=== PATIENT | female | born 1985 | race Caucasian/White ===

== ENCOUNTER 2017-02-10 22:34 | Inpatient (IN) | payer OTHER ==
[~2017-02-10] VITALS: Ht 165.1 cm; Wt 58.3 kg
--- NOTE | ~2017-02-10 | HC ---
[facility] [place] [address] CONSULTATION Name: JOSÉ MIGUEL ERICKSON Room #: [facility]-P ADM IN M.R.#: [id number] Admission: 02/11/17 Attend Phys: Heriberto Escobar MD Discharge: Date of : 85 Report #: [id number] THIS REPORT FOR: //name// CC: Jose Escobar DATE OF SERVICE: 02/11/2017 ENDOCRINE CONSULTATION DATE OF SERVICE: 02/11/2017 PATIENT OF: ____ PATIENT LOCATION: [facility] ICU SUBJECTIVE: One of multiple admissions for this 31-year-old white female with repeated episodes of ketoacidosis. The patient apparently has type 1 diabetes diagnosed at age 3 and has been somewhat noncompliant with frequent episodes of poor control and ketoacidosis. The patient is somewhat combative and gives limited history. She is quite lethargic. She apparently was admitted in ketoacidosis to an outside hospital and transferred here over the past day. She is currently receiving IV insulin and intravenous fluids plus potassium supplementation and lab is slowly normalizing. The patient states that she has been taking lispro insulin by sliding scale t.i.d., although she generally eats 4 meals and snacks frequently. She states she takes detemir 30 units b.i.d. She is unable to state who her physician is or why she is on such elevated insulin doses. She has no specifics about her dietary regimen, but states that she was checking her blood sugar over the past several days and they were in the high 100s to low 200s. Otherwise, the patient is unable to give any pertinent past or current medical history. CURRENT MEDICATIONS: At the time of consultation include IV insulin and fluids as mentioned above, fluoxetine, loratadine, famotidine, ondansetron, potassium and possibly other medication. Otherwise, there is no pertinent past or family history available at this time. OBJECTIVE: LABORATORY DATA: Last scheduled labs showed a sodium 141, potassium 4.2, chloride 107, CO2 20, BUN 10, creatinine 1.1, glucose 164, bilirubin 0.4, ____ 53, calcium 8.4, phosphorus 2.5, magnesium 1.8, alkaline phosphatase 163, SGPT 75, total protein 6.7, albumin 2.3. Acetone is pending. Prior glucoses were approximately 700 when admitted to [facility], most recent pH 7.38, but apparently was initially 7.1 at admission to prior [address] [address] CONSULTATION Name: JOSÉ MIGUEL ERICKSON Room #: 243-P ADM IN [facility]#: [id number] Admission: 02/11/17 Attend Phys: Heriberto Escobar MD Discharge: Date of : 85 Report #: [id number] hospital, drug screen is reported to be positive for methamphetamine. PHYSICAL EXAMINATION: GENERAL: Thin 31-year-old white female who is minimally able to answer questions and somewhat antagonistic. Height and weight are reported to be 5 feet 5 inches and 115 pounds. VITAL SIGNS: The patient is afebrile, heart rate 90 and regular, blood pressure 130/70. SKIN: Somewhat dry with decreased turgor. HEENT: PERRL. CHEST: Clear to P and A. HEART: Regular rhythm without murmurs, rubs or gallops. ABDOMEN: Benign, without masses, tenderness, organomegaly. Bowel sounds active. EXTREMITIES: Show no edema, cyanosis or clubbing. Peripheral pulses 2+ and equal bilaterally. NEUROLOGIC: Difficult to evaluate due to lack of patient cooperation. ASSESSMENT: 1. Diabetes mellitus in poor control with multiple recent episodes of ketoacidosis. By history, compliance has been poor, although the patient states she has been taking her insulin appropriately, monitoring her glucose, etc. This does not appear likely as it does not correspond with the laboratory data available. PLAN: 1. Will evaluate prior control with hemoglobin A1c. 2. Will continue IV hydration and attempt to slowly wean the patient back on the oral caloric intake and scheduled q.i.d. insulin dosage prior to hospital dismissal. Meanwhile, will attempt to explain the patient the necessity for improved compliance in all areas and effort to avoid her current apparent self-abusive behavior. Thank you very much for this consultation. I will continue to follow the patient with you and attempt to improve and stabilize glucose control. <ELECTRONICALLY SIGNED> By: Brain Kirby MD 02/12/17 0829 [id number] Brain Kirby MD /nt
--- NOTE | ~2017-02-10 | HC ---
[facility] [place] [address] CONSULTATION Name: JOSÉ MIGUEL ERICKSON Room #: 439-P ADM IN M.R.#: [id number] Admission: 02/11/17 Attend Phys: Heriberto Escobar MD Discharge: Date of : 85 Report #: [id number] THIS REPORT FOR: //name// CC: Jose Escobar DATE OF SERVICE: 02/12/2017 Clinically improved. The patient is now alert and appropriate and p.o. intake is slowly normalizing on her scheduled diet. Laboratory values are normalizing, sodium 140, potassium 3.6, chloride 105, CO2 of 26, BUN 7, creatinine ____. Glucoses are stable in the low 100s and insulin drip is now consistently off except for problem with it being discontinued earlier last night, allowing for unexpected hyperglycemia. The pH is also normalized. Initiating subcutaneous insulin and we will readjust dosage as needed, utilizing lispro t.i.d. prandially with meals and some form of glargine at bedtime. It is not clear whether the patient will continue with improved compliance after stabilization and dismissal. <ELECTRONICALLY SIGNED> By: Brain Kirby MD 02/13/17 1041 [id number] [id number] Brain Kirby MD /nt
--- NOTE | ~2017-02-10 | HC ---
[facility] [place] [address] CONSULTATION Name: JOSÉ MIGUEL ERICKSON Room #: 439-P [facility] IN M.R.#: [id number] Admission: 02/11/17 Attend Phys: Heriberto Escobar MD Discharge: 02/13/17 Date of : 85 Report #: [id number] THIS REPORT FOR: //name// CC: Jose Escobar DATE OF SERVICE: 02/13/2017 ENDOCRINE PROGRESS NOTE The patient continues to improve. Now on lower rate of IV hydration, insulin drip and frequent monitoring discontinued. The patient is now on q.i.d. subcutaneous insulin in an attempt to approximate appropriate dosage. The patient is doing well with t.i.d. lispro and bedtime glargine 300. We will schedule for discharge once glucoses is at least moderately stable, although I have concern regarding the patient's future compliance post-dismissal. I have discussed the need for appropriate diabetes management and avoidance of recreational drugs to a significant extent, but do not know whether this will be effective at correcting prior behaviors. <ELECTRONICALLY SIGNED> By: Brain Kirby MD 02/14/17 1054 [id number] 1112 Brain Kirby MD /nt
[2017-02-11 00:45] LABS: HEMATOCRIT 36.4 % (37.0-47.0); HEMOGLOBIN 12.1 gm/dL (12.0-15.0); MCH 33.2 pg (26.0-34.0); MCHC 33.1 g/dL (28.0-37.0); MCV 100.2 fL (80.0-100.0); RBC 3.63 mil/uL (4.20-5.00); RDW 14.8 % (10.5-14.5); WBC 11.4 thou/uL (4.0-11.0)
[2017-02-11 01:01] LABS: ALBUMIN 2.3 g/dL (3.4-5.0); ALKALINE PHOSPHATASE 163 U/L (46-116); ANION GAP 22 mmol/L (7-16); BUN 14 mg/dL (7-18); CALCIUM 8.1 mg/dL (8.5-10.1); CHLORIDE 108 mmol/L (98-107); CO2 12 mmol/L (21-32); CREATININE 1.2 mg/dL (0.6-1.0); GLUCOSE 180 mg/dL (74-106); MAGNESIUM 1.8 mg/dL (1.8-2.4); PHOSPHORUS 1.2 mg/dL (2.5-4.9); POTASSIUM 3.3 mmol/L (3.5-5.1); SGOT 53 U/L (15-37); SGPT 75 U/L (30-65); SODIUM 142 mmol/L (136-145); TOTAL BILIRUBIN 0.4 mg/dL (<0.1-1.0); TOTAL PROTEIN 6.7 g/dL (6.4-8.2); TROPONIN-I < 0.04 ng/mL (<0.04-0.07)
[2017-02-11 03:09] LABS: URINE BILIRUBIN 1+ (Negative); URINE BLOOD 1+ (Negative); URINE COLOR YELLOW; URINE GLUCOSE-RANDOM* 3+ (Negative); URINE KETONES 3+ (Negative); URINE LEUKOCYTES-REFLEX NEGATIVE (Negative); URINE PROTEIN (DIPSTICK) 2+ (Negative); URINE SPECIFIC GRAVITY 1.025 (1.003-1.035); URINE UROBILINOGEN 0.2 E.U./dl (0.2-1.0)
[2017-02-11 03:13] LABS: ICTOTEST (BILI CONFIRMATORY) Positive (Negative)
[2017-02-11 03:17] LABS: CASTS None Seen /LPF (None Seen); SQUAMOUS 0-3 Few /LPF (0-3)
[2017-02-11 03:18] LABS: CRYSTALS None Seen /LPF (None Seen); URINE RBC 0-2 Rare /HPF (0-2); URINE WBC-REFLEX 0-5 Rare /HPF (0-5)
[2017-02-11 03:20] LABS: AMP/METHAMP POSITIVE (Negative); BARBITURATES Negative (Negative); BENZODIAZEPINES Negative (Negative); COCAINE Negative (Negative); METHADONE Negative (Negative); OPIATES Negative (Negative); PCP Negative (Negative); THC Negative (Negative)
[2017-02-11] MEDS ORDERED: CLARITIN10 MG PO (03:30)
[2017-02-11] MEDS ORDERED: PROZAC20 MG PO (03:31)
[2017-02-11] MEDS ORDERED: HUMALOG100 UNIT/1 SUBQ (03:37)
[2017-02-11] MEDS ORDERED: LEVEMIR SUBQ (03:43)
[2017-02-11 04:24] LABS: CALCIUM 8.2 mg/dL (8.5-10.1); POTASSIUM 4.1 mmol/L (3.5-5.1)
[2017-02-11 05:32] LABS: ABG SAMPLE TYPE ARTERIAL; BE(vivo) -9.1 mmol/L (-2 to +3); HCO3 15.8 mmol/L (22.0-26.0); LACTATE 1.48 mmol/L (0.5-2.0); O2Hb 97.7 % (92.0-98.0); PCO2 31.2 mmHg (35.0-45.0); PO2 110.1 mmHg (80.0-100.0); sO2 97.8 % (92.0-98.0); tCO2 16.7 mmol/L (24.0-30.0)
[2017-02-11 05:34] LABS: STICK SITE RRA
[2017-02-11 05:35] LABS: pH 7.322 (7.360-7.450)
[2017-02-11 09:23] LABS: ALBUMIN 2.3 g/dL (3.4-5.0); CALCIUM 8.4 mg/dL (8.5-10.1); CREATININE 1.1 mg/dL (0.6-1.0); MAGNESIUM 1.8 mg/dL (1.8-2.4); PHOSPHORUS 2.5 mg/dL (2.5-4.9); POTASSIUM 4.2 mmol/L (3.5-5.1)
[2017-02-11 10:36] LABS: ABG SAMPLE TYPE ARTERIAL; BE(vivo) -3.3 mmol/L (-2 to +3); HCO3 21.3 mmol/L (22.0-26.0); LACTATE 1.92 mmol/L (0.5-2.0); O2(CT) 17.7 mL/dL (15.0-23.0); O2Hb 96.9 % (92.0-98.0); PCO2 36.5 mmHg (35.0-45.0); PO2 99.8 mmHg (80.0-100.0); pH 7.383 (7.360-7.450); sO2 97.5 % (92.0-98.0); tCO2 22.4 mmol/L (24.0-30.0)
[2017-02-11 10:37] LABS: STICK SITE R.RADIAL
[2017-02-11 16:05] LABS: ABG SAMPLE TYPE ARTERIAL; BE(vivo) -3.4 mmol/L (-2 to +3); HCO3 19.9 mmol/L (22.0-26.0); LACTATE 1.46 mmol/L (0.5-2.0); O2(CT) 17.6 mL/dL (15.0-23.0); O2Hb 97.6 % (92.0-98.0); PCO2 30.7 mmHg (35.0-45.0); PO2 109.9 mmHg (80.0-100.0); pH 7.429 (7.360-7.450); sO2 98.2 % (92.0-98.0); tCO2 20.8 mmol/L (24.0-30.0)
[2017-02-11 16:06] LABS: ABG COMMENT NO COMPLICATIONS.; STICK SITE L.RADIAL
[2017-02-11 17:48] LABS: ALBUMIN 2.1 g/dL (3.4-5.0); CALCIUM 8.3 mg/dL (8.5-10.1); CREATININE 0.9 mg/dL (0.6-1.0); MAGNESIUM 1.9 mg/dL (1.8-2.4); PHOSPHORUS 2.5 mg/dL (2.5-4.9); POTASSIUM 4.3 mmol/L (3.5-5.1)
[2017-02-12 05:11] LABS: GLYCOHEMOGLOBIN (HGB A1C) 10.4 % (4.8-5.6)
[2017-02-12 07:45] LABS: CALCIUM 8.8 mg/dL (8.5-10.1); POTASSIUM 3.6 mmol/L (3.5-5.1)
[2017-02-12 09:45] VITALS: BP 153/93
[2017-02-12 20:04] VITALS: BP 134/90
[2017-02-13 03:16] VITALS: BP 148/98
[2017-02-13 08:00] VITALS: BP 146/88
== END 2017-02-13 12:00 | disposition left against medical advice (07) | DRG 639 ==
LOC: ICU 22:34 → 4S 02-11 00:11
PROVIDERS: Family Medicine; Internal Medicine Endocrinology, Diabetes & Metabolism; Nurse Practitioner Acute Care
DX: E10.10 Type 1 diabetes mellitus with ketoacidosis without coma (principal); R74.0 Nonspecific elevation of levels of transaminase and lactic acid dehydrogenase [LDH]; F32.9 Major depressive disorder, single episode, unspecified; F17.210 Nicotine dependence, cigarettes, uncomplicated; F15.10 Other stimulant abuse, uncomplicated; Z53.21 Procedure and treatment not carried out due to patient leaving prior to being seen by health care provider; Z79.4 Long term (current) use of insulin; Z79.899 Other long term (current) drug therapy; Z88.8 Allergy status to other drugs, medicaments and biological substances
CPT/HCPCS: 10078; 10102